=== PATIENT | male | born 1975 ===

== ENCOUNTER 2017-09-20 15:23 | Inpatient (IN) | payer MEDICAID, OTHER ==
[2017-09-20 15:23] VITALS: BMI 29.5
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
[2017-09-20 17:00] LABS: BARBITURATES, UR NEGATIVE (NEGATIVE); BENZODIAZEPINES, UR NEGATIVE (NEGATIVE); OPIATES, UR NEGATIVE (NEGATIVE); PHENCYCLIDINE, UR NEGATIVE (NEGATIVE)
[2017-09-20 17:13] LABS: URINE BILIRUBIN NEGATIVE (NEGATIVE); URINE BLOOD NEGATIVE (NEGATIVE); URINE CLARITY SLIGHTY-CLOUDY (Clear); URINE COLOR YELLOW (YELLOW); URINE GLUCOSE (UA) NEG (Normal); URINE LEUKOCYTE ESTERASE TRACE Leu/uL (Negative); URINE PROTEIN NEGATIVE (NEGATIVE)
[2017-09-20 17:14] LABS: BASO % 0.7 % (0.0-2.0); EOS # 0.2 K/uL (0.0-0.7); EOS % 2.4 % (0.0-4.0); HEMOGLOBIN 13.5 g/dL (12.0-18.0); LYMPH # 2.3 K/uL (1.0-4.3); LYMPH % 30.7 % (20.0-40.0); MEAN CELL VOLUME 91.7 fl (80.0-94.0); MEAN CORPUSCULAR HEMOGLOBIN 29.9 pg (27.0-31.0); MEAN CORPUSCULAR HGB CONC 32.6 g/dL (33.0-37.0); MEAN PLATELET VOLUME 9.6 fl (7.2-11.7); MONO # 0.6 K/uL (0.0-0.8); MONO % 8.4 % (0.0-10.0); NEUT # 4.3 K/uL (1.8-7.0); NEUT % 57.8 % (50.0-75.0); RBC 4.53 Mil/uL (4.40-5.90); RED CELL DISTRIBUTION WIDTH 14.7 % (11.5-14.5); WHITE BLOOD COUNT 7.5 K/uL (4.8-10.8)
[2017-09-20 17:23] LABS: ALB/GLOB RATIO 1.1 (1.0-2.1); ALBUMIN 4.2 g/dL (3.5-5.0); ALT/SGPT 26 U/L (21-72); AST/SGOT 24 U/L (17-59); BLOOD UREA NITROGEN 18 mg/dl (9-20); CALCIUM 9.4 mg/dL (8.4-10.2); GFR AFRICAN-AMERICAN > 60; GFR NON-AFRICAN AMERICAN > 60
[2017-09-20] MEDS ORDERED: DiphenhydrAMINE 50 mg/ml Inj IM PRN (20:56)
[2017-09-20] MEDS ORDERED: Alum-Mag Hydrox-Simethicone Susp (30 mL) PO PRN (20:56)
[2017-09-20] MEDS ORDERED: Magnesium Hydroxide Susp 30 ml UD PO PRN (20:56)
--- NOTE | 2017-09-20 21:37 | PCM.BM ---
<Beverly Sanches - Last Filed: 09/20/17 21:35> Treatment Plan Problems - Problems identified on initial assessmt Agitated/aggressive behavior Date Initiated: 09/20/17 Time Initiated: 21:35 Assessment reference: NA Status: Active Ineffective management of therapeutic regimen Date Initiated: 09/20/17 Time Initiated: 21:36 Assessment reference: NA Status: Active Treatment assets and liabiliti Patient Assests: ADL independent, negotiates basic needs, cognitively intact Patient Liabilities: substance abuse, medical problems - Milieu Protocol Maintain good personal hygiene: daily Remind patient to perform daily oral care , every shift Encourage regular showers, every shift Assist patient to perform ADL's Conduct patient checks and document Observation sheet: Q15 minutes Maintain personal safety: every shift Educate patient to report safety concerns to staff, every shift Monitor environment for contraband/sharps Medication safety: Monitor for expected outcome, potential side effects: every shift, Assess barriers to learning: every shift, Assess readiness for medication education: every shift <Iqra Flores - Last Filed: 09/22/17 09:32> - Diagnosis (1) Schizoaffective disorder Status: Acute Interventions: Medication management, Individual and group therapy, Psychoeducation 09/22/17 09:33 <Long Quick - Last Filed: 09/23/17 08:21> Family Contact Family involvement: Famliy/SO not involved Family contact: Patient declines to allow family contact at present Family contact name: Pt denied. - Goals for Treatment Patient goals for treatment: Pt was too lethargic to offer any goals at this time. Pt was observed putting his head on the table several times during treatment team. Discharge/Continuing Care - Education Needs Education Needs: Patient Medication, Patient Diagnosis/Disease Process, Patient Coping Skills, Patient Placement options, Patient Community resources, Patient Aftercare Safety Plan - Discharge Discharge Criteria: Tolerates medication w/o severe side effects, Free of Suicidal thoughts, Free of paranoid thoughts, Free of agitation, Reduction of target symptoms Discharge to:: Senior [facility] - Additional Comments 09/23/17 08:20 Pt appeared lethargic during team and asked that his Risperdal be switch to HS. Pt did not offer any other questions, complaints or goals. It was informed by Dr. Flores that Risperdal would be raised from 2mg to 3mg on 09/23/17. - Treatment Team Participation Discussed with Family/SO: No Was Patient/Family/SO present at Treatment Team Meeting: Yes
[2017-09-20 22:21] VITALS: O2SAT 98
[2017-09-21 09:03] LABS: T4 6.38 ug/dl (5.5-11.0)
[2017-09-21] MEDS: Divalproex 500 mg DR(BID formulation) PO SCH ×2 (09:43→21:07)
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
[2017-09-21] MEDS: Risperidone M tab 1 MG PO SCH (17:37)
[2017-09-22] MEDS: Risperidone M tab 1 MG PO SCH (08:50)
[2017-09-22] MEDS: Divalproex 500 mg DR(BID formulation) PO SCH ×2 (08:50→21:07)
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
[2017-09-23] MEDS: Divalproex 500 mg DR(BID formulation) PO SCH ×2 (08:38→21:00)
--- NOTE | 2017-09-23 12:46 | PCM.PYCHPN ---
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 He is bizarre, psychomotor retarded, internally preoccupied, stares blankly at times and postures. He minimizes symptoms and denies acute AH/VH/depression/anxiety/SI/HI. He has poor insight/judgment. Medication Change: No Medical Record Reviewed: Yes Consults ordered or reviewed: Medicine consult Mental Status Examination - Cognitive Function Orientation: Person, Place, Situation, Time Memory: Impaired Attention: Poor Concentration: Poor Association: Loose Fund of Knowledge: Poor Decription of patient's judgement and insights: Poor I/J - Mood Mood: Neutral - Affect Affect: Blunted - Speech Speech: Soft - Formal Thought Process Formal Thought Process: Delusions, Paranoia, Loosening of associations Psychotic Thoughts and Behaviors: +Paranoia - Suicidal Ideation Suicidal Ideation: No - Homicidal Ideation Homicidal Ideation: No Goal/Treatment Plan - Goal/Treatment Plan Need for Continued Stay: Remain at risks for inpatient hospitalization, Discharge may exacerbated symptoms, Severe functional impairment Progress Toward Problem(s) and Goals/Treatment Plan: Schizoaffective Disorder -Individual and group therapy -Psychoeducation -Continue Depakote 500 mg PO Q12 -Continue Risperdal 3 mg PO HS and Cogentin to 1 mg PO HS -Screen for involuntary psychiatric admission -Medicine consult -Disposition planning Estimated Date of D/C: 09/26/17
[2017-09-24] MEDS: Divalproex 500 mg DR(BID formulation) PO SCH ×2 (09:00→21:13)
--- NOTE | 2017-09-24 10:06 | PCM.PYCHPN ---
Psychiatric Progress Note - Psychiatric Progress Note Patient seen today, length of contact: Patient evaluated, case discussed w/ team , chart reviewed Patient Chief Complaint: "I'm fine." Problems Identified/Issues Discussed: Patient retracted his 48 hour letter and is not agreeable to staying in the hospital for continued treatment. He denies AH/VH/paranoia, but continues to be bizarre, psychomotor retarded, internally preoccupied, stares blankly at times and postures. Denies SI/HI. +Poor insight/judgment Medication Change: No Medical Record Reviewed: Yes Consults ordered or reviewed: Medicine consult Mental Status Examination - Cognitive Function Orientation: Person, Place, Situation, Time Memory: Impaired Attention: Poor Concentration: Poor Association: Loose Fund of Knowledge: Poor Decription of patient's judgement and insights: Poor I/J - Mood Mood: Neutral - Affect Affect: Blunted - Speech Speech: Soft - Formal Thought Process Formal Thought Process: Loosening of associations Psychotic Thoughts and Behaviors: Denies AH/VH, but seems bizarre and internally preoccupied - Suicidal Ideation Suicidal Ideation: No - Homicidal Ideation Homicidal Ideation: No Goal/Treatment Plan - Goal/Treatment Plan Need for Continued Stay: Remain at risks for inpatient hospitalization, Discharge may exacerbated symptoms, Severe functional impairment Progress Toward Problem(s) and Goals/Treatment Plan: Schizoaffective Disorder -Individual and group therapy -Psychoeducation -Continue Depakote 500 mg PO Q12 -Continue Risperdal 3 mg PO HS and Cogentin to 1 mg PO HS -Medicine consult -Disposition planning Estimated Date of D/C: 09/27/17
[2017-09-25] MEDS: Divalproex 500 mg DR(BID formulation) PO SCH ×2 (08:41→21:24)
--- NOTE | 2017-09-25 09:38 | PCM.PYCHPN ---
Psychiatric Progress Note - Psychiatric Progress Note Patient seen today, length of contact: Patient evaluated, case discussed w/ team , chart reviewed Patient Chief Complaint: "I'm fine." Problems Identified/Issues Discussed: Patient denies depression/anxiety/AH/VH/paranoia/delusions; but he continues to be bizarre, psychomotor retarded, internally preoccupied, stares blankly at times and postures. Denies SI/HI. +Poor insight/judgment Medication Change: Yes (Increase Risperdal) Medical Record Reviewed: Yes Consults ordered or reviewed: Medicine consult Mental Status Examination - Cognitive Function Orientation: Person, Place, Situation, Time Memory: Impaired Attention: Poor Concentration: Poor Association: Loose Decription of patient's judgement and insights: Poor I/J - Mood Mood: Neutral - Affect Affect: Blunted - Speech Speech: Soft - Formal Thought Process Formal Thought Process: Loosening of associations Psychotic Thoughts and Behaviors: Denies AH/VH, but seems bizarre and internally preoccupied - Suicidal Ideation Suicidal Ideation: No - Homicidal Ideation Homicidal Ideation: No Goal/Treatment Plan - Goal/Treatment Plan Need for Continued Stay: Remain at risks for inpatient hospitalization, Discharge may exacerbated symptoms, Severe functional impairment Progress Toward Problem(s) and Goals/Treatment Plan: Schizoaffective Disorder -Individual and group therapy -Psychoeducation -Continue Depakote 500 mg PO Q12 -Increase Risperdal to 1 mg PO AM/ 3 mg PO HS; Cogentin 0.5 mg PO AM/ 1 mg PO HS -Medicine consult -Disposition planning Estimated Date of D/C: 09/28/17
[2017-09-26] MEDS: Divalproex 500 mg DR(BID formulation) PO SCH ×2 (09:59→21:00)
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
[2017-09-27] MEDS: Divalproex 500 mg DR(BID formulation) PO SCH ×2 (08:56→21:00)
--- NOTE | 2017-09-27 11:19 | PCM.PYCHPN ---
Psychiatric Progress Note - Psychiatric Progress Note Patient seen today, length of contact: Patient evaluated, case discussed w/ team , chart reviewed Patient Chief Complaint: "I'm fine." Problems Identified/Issues Discussed: Patient denies depression/anxiety/AH/VH/paranoia/delusions. He has not had any behavioral issues; no episodes of violence or aggression. Patient seems to be approaching his baseline of functioning. Medication Change: No Medical Record Reviewed: Yes Consults ordered or reviewed: Medicine consult Mental Status Examination - Cognitive Function Orientation: Person, Place, Situation, Time Memory: Impaired (Chronic impairments in memory, attention, concentration, association, knowledge due to TBI) Attention: Poor Concentration: Poor Association: Loose Fund of Knowledge: Poor Decription of patient's judgement and insights: Chronic poor I/J due to TBI - Mood Mood: Neutral - Affect Affect: Constricted - Speech Speech: Soft - Formal Thought Process Formal Thought Process: No Impairment, Loosening of associations Psychotic Thoughts and Behaviors: Denies AH/VH - Suicidal Ideation Suicidal Ideation: No - Homicidal Ideation Homicidal Ideation: No Goal/Treatment Plan - Goal/Treatment Plan Need for Continued Stay: Severe functional impairment Progress Toward Problem(s) and Goals/Treatment Plan: Schizoaffective Disorder; patient is improving clinically -Individual and group therapy -Psychoeducation -Continue Depakote 500 mg PO Q12 -Continue Risperdal 1 mg PO AM/ 3 mg PO HS; Cogentin 0.5 mg PO AM/ 1 mg PO HS -Medicine consult -Disposition planning Estimated Date of D/C: 09/28/17
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
[2017-09-28] MEDS: Divalproex 500 mg DR(BID formulation) PO SCH ×2 (09:13→21:19)
--- NOTE | 2017-09-28 11:32 | PCM.PYCHPN ---
Psychiatric Progress Note - Psychiatric Progress Note Patient seen today, length of contact: Patient evaluated, case discussed w/ team , chart reviewed Patient Chief Complaint: "I'm fine." Problems Identified/Issues Discussed: No new events. Patient denies depression/anxiety/AH/VH/paranoia/delusions. He has not had any behavioral issues; no episodes of violence or aggression. Patient is at his baseline of functioning; pending authorization to return to his [facility]. Medication Change: No Medical Record Reviewed: Yes Consults ordered or reviewed: Medicine consult Mental Status Examination - Cognitive Function Orientation: Person, Place, Situation, Time Memory: Impaired (Chronic impairments in memory, attention, concentration, association, knowledge due to TBI) Attention: Poor Concentration: Poor Association: Loose Fund of Knowledge: Poor Decription of patient's judgement and insights: Chronic poor I/J due to TBI - Mood Mood: Neutral - Affect Affect: Constricted - Speech Speech: Soft - Formal Thought Process Formal Thought Process: Loosening of associations Psychotic Thoughts and Behaviors: Denies AH/VH - Suicidal Ideation Suicidal Ideation: No - Homicidal Ideation Homicidal Ideation: No Goal/Treatment Plan - Goal/Treatment Plan Progress Toward Problem(s) and Goals/Treatment Plan: Schizoaffective Disorder; patient is at his baseline of functioning; pending authorization to return to the [facility] -Individual and group therapy -Psychoeducation -Continue Depakote 500 mg PO Q12 -Continue Risperdal 1 mg PO AM/ 3 mg PO HS; Cogentin 0.5 mg PO AM/ 1 mg PO HS -Medicine consult -Disposition planning Estimated Date of D/C: 09/29/17
[2017-09-28 17:18] VITALS: BP 130/87; PULSE 86; RESP 18; TEMP 98.4
[2017-09-29] MEDS: Divalproex 500 mg DR(BID formulation) PO SCH (08:59)
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
== END 2017-09-29 13:54 | disposition home or self-care (01) | DRG 430 ==
LOC: H.ER 15:23 → H.ERHOLD 17:23 → H.PSYCH 20:47
PROVIDERS: ADMIT Psychiatry & Neurology Psychiatry; ATTEND Psychiatry & Neurology Psychiatry
PROC: GZHZZZZ Group Psychotherapy (ICD-10-PCS; principal; 2017-09-20)
DX: F25.9 Schizoaffective disorder, unspecified (principal); R41.9 Unspecified symptoms and signs involving cognitive functions and awareness; G20 Parkinson's disease; E03.9 Hypothyroidism, unspecified; G40.909 Epilepsy, unspecified, not intractable, without status epilepticus; F17.210 Nicotine dependence, cigarettes, uncomplicated; Z87.820 Personal history of traumatic brain injury; B35.1 Tinea unguium

== ENCOUNTER 2017-10-01 22:48 | Emergency (ER) | payer OTHER ==
[2017-10-01 22:48] VITALS: BMI 29.5
--- NOTE | 2017-10-02 00:07 | ED PDOC ---
HPI: Psych/Substance Abuse Time Seen by Provider: 10/01/17 23:17 Chief Complaint (Nursing): Psychiatric Evaluation History Per: Patient Additional Complaint(s): Pt. brought to ED from [facility] for aggressive behavior. States he was attempting to talk to his mother on the phone but the staff would not allow him to. States he broke the phone out of anger. Also states he was not given his dinner which further angered him. Offers no complaints at this time. Pt. states he had a meal while in ED and he is feeling calmer. Denies SI/HI, hallucinations. Past Medical History Reviewed: Historical Data, Nursing Documentation, Vital Signs Vital Signs: Last Vital Signs Temp 98.2 F 10/01/17 22:53 Pulse 85 10/01/17 22:53 Resp 16 10/01/17 22:53 BP 121/79 10/01/17 22:53 Pulse Ox 98 10/01/17 22:53 - Medical History PMH: Anxiety, Hypothyroidism, Schizophrenia, Seizures Denies: Diabetes, Hepatitis, HIV, HTN, Chronic Kidney Disease, Sexually Transmitted Disease - Family History Family History: States: Unknown Family Hx - Home Medications Home Medications: Ambulatory Orders Medication Instructions Recorded Benztropine [Cogentin] 1 mg PO HS tab 09/29/17 Carbidopa/Levodopa 25/100 mg 1 tab PO DAILY@0700,1200,1500 tab 09/29/17 [Sinemet] Divalproex [Depakote DR(*BID*)] 500 mg PO Q12 tcp 09/29/17 Nicotine 14 mg/24 hr [Nicoderm CQ] 1 patch TD DAILY patch 09/29/17 Zolpidem [Ambien] 5 mg PO HS PRN tab 09/29/17 levETIRAcetam [Keppra] 500 mg PO Q12 tab 09/29/17 risperiDONE [RisperDAL Tab] 3 mg PO HS #0 tab 09/29/17 - Allergies Allergies/Adverse Reactions: Allergies Allergy/AdvReac Type Severity Reaction Status Date / Time No Known Allergies Allergy Verified 09/20/17 15:24 Review of Systems ROS Statement: Except As Marked, All Systems Reviewed And Found Negative Physical Exam - Reviewed Nursing Documentation Reviewed: Yes Vital Signs Reviewed: Yes - Physical Exam Appears: Positive for: Well, Non-toxic, No Acute Distress (seen eating sandwich) Head Exam: Positive for: ATRAUMATIC, NORMAL INSPECTION, NORMOCEPHALIC Skin: Positive for: Normal Color, Warm. Negative for: Rash Eye Exam: Positive for: EOMI, Normal appearance, PERRL ENT: Positive for: Normal ENT Inspection Neck: Positive for: Normal, Painless ROM Cardiovascular/Chest: Positive for: Regular Rate, Rhythm Respiratory: Positive for: CNT, Normal Breath Sounds Gastrointestinal/Abdominal: Positive for: Normal Exam, Soft. Negative for: Tenderness Back: Positive for: Normal Inspection Extremity: Positive for: Normal ROM Neurologic/Psych: Positive for: Alert, Oriented, Mood/Affect (calm, cooperative) , Other (resting tremor noted). Negative for: Aphasia, Facial Droop - ECG O2 Sat by Pulse Oximetry: 98 - Progress ED Course And Treament: Pt. evaluated by [facility] manager workers compensation, who spoke with Dr. Gomez and cleared pt. for discharge to return to [facility]. Disposition - Clinical Impression Clinical Impression: Adjustment disorder - Patient ED Disposition Is Patient to be Admitted: No - Disposition Disposition: Other Institution Disposition Time: 01:54 Condition: STABLE Additional Instructions: MARIELA JUAREZ, thank you for letting us take care of you today. Your provider was Anant Gandhi MD and you were treated for PSYCH EVAL. The emergency medical care you received today was directed at your acute symptoms. If you were prescribed any medication, please fill it and take as directed. It may take several days for your symptoms to resolve. Return to the Emergency Department if your symptoms worsen, do not improve, or if you have any other problems. Please contact your doctor or call one of the physicians/clinics you have been referred to that are listed on the Patient Visit Information form that is included in your discharge packet. Bring any paperwork you were given at discharge with you along with any medications you are taking to your follow up visit. Our treatment cannot replace ongoing medical care by a primary care provider outside of the emergency department. Thank you for allowing the [facility] team to be part of your care today. If you had an X-Ray or CT scan: A Radiologist will review the ED reading if any change in treatment is needed we will contact you. If you had a blood, urine, or wound culture: It will take several days for the results, if any change in treatment is needed we will contact you. If you had an STI test: It will take 48 hours for the results. Please call after 1 week if you have not heard back. Instructions: Adjustment Disorder Forms: [employer] (Norwegian)
[2017-10-02 01:45] VITALS: BP 126/82; PULSE 82; RESP 19; TEMP 98.6
[2017-10-02 02:03] LABS: BARBITURATES, UR NEGATIVE (NEGATIVE); BENZODIAZEPINES, UR NEGATIVE (NEGATIVE); OPIATES, UR NEGATIVE (NEGATIVE); PHENCYCLIDINE, UR NEGATIVE (NEGATIVE)
[2017-10-02 04:27] VITALS: O2SAT 98
== END 2017-10-02 01:55 | disposition home or self-care (01) ==
LOC: H.ER 22:48
DX: F43.20 Adjustment disorder, unspecified (principal); F20.9 Schizophrenia, unspecified; E03.9 Hypothyroidism, unspecified